=== PATIENT | female | born 1940 | race Caucasian/White ===

== ENCOUNTER 2018-10-20 15:01 | Emergency (ER) | payer OTHER ==
[~2018-10-20] VITALS: Ht 157.5 cm; Wt 106.6 kg
[2018-10-20] MEDS ORDERED: ASPIR 8181 MG PO (15:36)
[2018-10-20] MEDS ORDERED: CLARITIN10 MG PO (15:37)
[2018-10-20] MEDS ORDERED: ZANAFLEX4 MG PO (15:46)
[2018-10-20] MEDS ORDERED: CELEBREX 200 M200 M1 PO (15:46)
[2018-10-20] MEDS ORDERED: DILAUDID 2 MG TA2 MG PO (15:47)
[2018-10-20] MEDS ORDERED: NEURONTIN 300300 M1 PO (15:47)
[2018-10-20] MEDS ORDERED: FLOMAX0.4 MG PO (15:47)
[2018-10-20] MEDS ORDERED: MOVANTIK25 MG PO (15:48)
[2018-10-20] MEDS ORDERED: TROSPIUM CHLORI60 MG PO (15:48)
[2018-10-20] MEDS ORDERED: SYNTHROID100 MC1 PO (15:48)
[2018-10-20] MEDS ORDERED: ESTRACE0.5 MG PO (15:49)
[2018-10-20] MEDS ORDERED: FENOFIBRATE160 MG PO (15:50)
[2018-10-20] MEDS ORDERED: AMITRIPTYLINE H25 M2 PO (15:50)
[2018-10-20] MEDS ORDERED: CYMBALTA60 MG PO (15:51)
[2018-10-20] MEDS ORDERED: VITAMIN B-12500 MCG PO (15:58)
[2018-10-20] MEDS ORDERED: TUMS PO (15:59)
[2018-10-20] MEDS ORDERED: VITAMIN D1000 UNI1 PO (15:59)
[2018-10-20] MEDS ORDERED: B COMPLEX # 11 EACH PO (15:59)
[2018-10-20] MEDS ORDERED: PROBIOTIC1 EAC1 PO (15:59)
[2018-10-20 16:13] VITALS: BP 120/42
== END 2018-10-20 16:28 | disposition home or self-care (01) ==
LOC: ER 15:01
DX: G89.29 Other chronic pain (principal); M54.5 Low back pain; Z88.0 Allergy status to penicillin

== ENCOUNTER 2018-12-05 14:55 | Emergency (ER) | payer OTHER ==
[~2018-12-05] VITALS: Ht 157.5 cm; Wt 108.4 kg
[~2018-12-05 14:55] MED LIST: AMITRIPTYLINE H25 M2 PO; ASPIR 8181 MG PO; B COMPLEX # 11 EACH PO; CELEBREX 200 M200 M1 PO; CLARITIN10 MG PO; CYMBALTA60 MG PO; DILAUDID 2 MG TA2 MG PO; ESTRACE0.5 MG PO; FENOFIBRATE160 MG PO; FLOMAX0.4 MG PO; MOVANTIK25 MG PO; NEURONTIN 300300 M1 PO; PROBIOTIC1 EAC1 PO; SYNTHROID100 MC1 PO; TROSPIUM CHLORI60 MG PO; TUMS PO; VITAMIN B-12500 MCG PO; VITAMIN D1000 UNI1 PO; ZANAFLEX4 MG PO
[2018-12-05 16:38] VITALS: BP 117/56
== END 2018-12-05 16:35 | disposition home or self-care (01) ==
LOC: ER 14:55
DX: G89.29 Other chronic pain (principal); M54.5 Low back pain; F41.9 Anxiety disorder, unspecified; F32.9 Major depressive disorder, single episode, unspecified; Z90.49 Acquired absence of other specified parts of digestive tract; Z90.710 Acquired absence of both cervix and uterus; Z88.0 Allergy status to penicillin

== ENCOUNTER 2019-02-06 11:36 | Emergency (ER) | payer OTHER ==
[~2019-02-06] VITALS: Ht 157.5 cm; Wt 105.2 kg
[2019-02-06 14:38] VITALS: BP 138/86
== END 2019-02-06 14:39 | disposition home or self-care (01) ==
LOC: ER 11:36
DX: G89.29 Other chronic pain (principal); M54.5 Low back pain; Z90.49 Acquired absence of other specified parts of digestive tract; Z90.710 Acquired absence of both cervix and uterus; Z88.0 Allergy status to penicillin; Z79.899 Other long term (current) drug therapy

== ENCOUNTER 2019-02-08 12:56 | Emergency (ER) | payer OTHER ==
[~2019-02-08] VITALS: Ht 157.5 cm; Wt 105.2 kg
[2019-02-08 13:29] LABS: URINE BILIRUBIN NEGATIVE (Negative); URINE BLOOD 3+ (Negative); URINE CLARITY CLEAR; URINE COLOR YELLOW; URINE GLUCOSE-RANDOM* 3+ (Negative); URINE KETONES TRACE (Negative); URINE LEUKOCYTES-REFLEX 1+ (Negative); URINE NITRITE-REFLEX NEGATIVE (Negative); URINE PROTEIN (DIPSTICK) TRACE (Negative); URINE UROBILINOGEN 0.2 E.U./dl (0.2-1.0)
[2019-02-08 13:39] LABS: AMORPHOUS URATES Many /LPF (None Seen); BACTERIA-REFLEX 1-9 Few /HPF (None Seen); CASTS None Seen /LPF (None Seen); SQUAMOUS 0-3 Few /LPF (0-3); URINE WBC-REFLEX >25 Many /HPF (0-5)
[2019-02-08] MEDS ORDERED: MACROBID 100 M100 M1 PO (14:28)
[2019-02-08 15:21] VITALS: BP 119/57
== END 2019-02-08 14:40 | disposition home or self-care (01) ==
LOC: ER 12:56
PROVIDERS: Emergency Medicine
DX: G89.29 Other chronic pain (principal); M54.5 Low back pain; Z90.49 Acquired absence of other specified parts of digestive tract; Z90.710 Acquired absence of both cervix and uterus; Z79.899 Other long term (current) drug therapy; Z88.0 Allergy status to penicillin

== ENCOUNTER 2019-03-30 11:31 | Inpatient (IN) | payer OTHER ==
[~2019-03-30] VITALS: Ht 157.5 cm; Wt 101.4 kg
--- NOTE | ~2019-03-30 | HC ---
[facility] [place] [address] CONSULTATION Name: IRENE JON Room #: 427-P [facility] IN M.R.#: [id number] Admission: 03/30/19 ������������������ Attend Phys: Danny Roa MD Discharge: ������������������ Date of : 42 Report #: [id number] THIS REPORT FOR: //name// CC: Danny Kilgore DATE OF SERVICE: 03/31/2019 HISTORY OF PRESENT ILLNESS: The patient is a 78-year-old white female with a history of recurrent UTIs, along with chronic back pain and opiate usage and prior spinal stimulator. She was admitted with worsening back pain and right flank pain. This was thought to be likely urinary related with CT scan showing marked bladder wall thickening, likely due to chronic cystitis. She has been on IV antibiotics. She was diagnosed with right lower extremity radiculopathy as well as an encephalopathy thought to be metabolic, which appears to be resolved. Her pain complains are overall better and she notes she is functioning much better and is hoping to go home soon. We are seeing her in rehabilitation medicine consultation. PAST MEDICAL HISTORY: As noted above. Prior history also includes the chronic back pain, neural stimulator in her back, pancreatitis, anxiety, and depression. MEDICATIONS: Please see the full medication listing. HABITS: No history of tobacco or alcohol abuse. SOCIAL HISTORY: Lives in [facility] in [facility]. She uses a front-wheeled walker. No stairs. REVIEW OF SYSTEMS: No complaints of chest pain, shortness of breath, or abdominal discomfort. PHYSICAL EXAMINATION: GENERAL: A pleasant, obese 78-year-old white female, in no obvious distress. VITAL SIGNS: Temperature 97.6, pulse 94, respirations 16, blood pressure 113/70. She is alert and pleasant. HEENT: Appeared to be benign. NEUROLOGIC: Cranial nerves grossly intact. Facies are symmetric. EXTREMITIES: Functional range of motion of both upper extremities. Lower extremities: She does have some evidence of chronic lymphedema. She moves both legs with strength probably at least a grade 4/5. Sit to stand, standby assistance and she ambulated 250 feet with a front-wheeled walker with standby assistance. ASSESSMENT: A 78-year-old white female with the following problem list: 1. Recurrent urinary tract infection. [address] [address] CONSULTATION Name: IRENE JON Room #: 427-P [facility] IN M.R.#: [id number] Admission: 03/30/19 ������������������ Attend Phys: Danny Roa MD Discharge: ������������������ Date of : 42 Report #: [id number] 2. Zssmz-of-yqubmez right flank back pain with radiculopathy to the right lower extremity. 3. Uncontrolled diabetes mellitus. 4. Lymphedema. 5. Polypharmacy. 6. Anxiety and depression. PLAN: Functionally, she is doing very well with her ambulation with a front-wheeled walker. Physical therapy has actually discharged her from therapies and I would anticipate that should be able to return directly home likely with some home healthcare as she further medically stabilizes. ��������������������������������������������� ���������������������������������������� By: ��������������������������������������������� 1415 1816 Murray Martinez MD /PMT
[~2019-03-30 11:31] MED LIST changes: +MACROBID 100 M100 M1 PO
[2019-03-30 11:38] VITALS: BP 112/65
[2019-03-30 12:18] LABS: URINE BILIRUBIN NEGATIVE (Negative); URINE BLOOD 3+ (Negative); URINE CLARITY TURBID; URINE GLUCOSE-RANDOM* 3+ (Negative); URINE KETONES 1+ (Negative); URINE LEUKOCYTES 2+ (Negative); URINE NITRITE POSITIVE (Negative); URINE PROTEIN (DIPSTICK) 3+ (Negative)
[2019-03-30 12:19] LABS: URINE COLOR DARK RED
[2019-03-30 12:29] LABS: BACTERIA >30 Many /HPF (None Seen); CASTS None Seen /LPF (None Seen); CRYSTALS None Seen /LPF (None Seen); URINE RBC >20 Many /HPF (0-2); URINE WBC >25 Many /HPF (0-5)
[2019-03-30 12:30] LABS: SQUAMOUS 4-10 Moderate /LPF (0-3)
[2019-03-30 12:31] LABS: YEAST Present (None Seen)
[2019-03-30 12:45] LABS: HEMATOCRIT 41.2 % (37.0-47.0); HEMOGLOBIN 13.8 gm/dL (12.0-15.0); MCH 30.9 pg (26.0-34.0); MCHC 33.4 g/dL (28.0-37.0); MCV 92.3 fL (80.0-100.0); PLATELET COUNT 362 thou/uL (150-400); RBC 4.47 mil/uL (4.20-5.00); RDW 12.7 % (10.5-14.5); WBC 10.1 thou/uL (4.0-11.0)
[2019-03-30 12:49] LABS: CREATININE 0.8 mg/dL (0.6-1.0); POTASSIUM 4.3 mmol/L (3.5-5.1)
[2019-03-30 12:55] LABS: ALBUMIN 2.8 g/dL (3.4-5.0); TOTAL BILIRUBIN 0.7 mg/dL (<0.1-1.0); TOTAL PROTEIN 7.3 g/dL (6.4-8.2)
[2019-03-30 13:21] LABS: ABSOLUTE NEUTROPHILS 8.1 thou/uL (1.4-8.2)
[2019-03-30 13:22] LABS: ANISOCYTOSIS SLIGHT
[2019-03-30 17:35] VITALS: BP 117/69
[2019-03-30 22:04] VITALS: BP 120/83
[2019-03-30 23:07] VITALS: BP 153/103
--- NOTE | 2019-03-31 03:48 | NUR ---
PT RESTING, WOKE UP CRYING, MEDICATED WITH DILAUDID 1.5 MG IV ORDERED, PT ABLE TO TURN/REPOSITION SELF, PERIAREA RED, MOISTURE BARRIER APPLIED, CONTINUE WITH VAGINAL BLEEDING, DENIES DIZZINESS, USES BEDPAN AND VOIDED, ENC. TO DRINK LOTS OF WATER DUE TO UTI,. IVF INFUSING, ON ROOM AIR, MONITORED.
[2019-03-31 03:49] VITALS: BP 113/70
[2019-03-31 04:06] LABS: GLYCOHEMOGLOBIN (HGB A1C) 14.8 % (4.8-5.6)
[2019-03-31 06:28] LABS: CALCIUM 9.1 mg/dL (8.5-10.1); CREATININE 0.7 mg/dL (0.6-1.0); MAGNESIUM 1.6 mg/dL (1.8-2.4); POTASSIUM 3.5 mmol/L (3.5-5.1)
--- NOTE | 2019-03-31 10:58 | NUR ---
Assess due to high BMI 40.9=extreme class III obesity. New dx diabetes, admit with recurrent UTI. Good appetite. Provided diet education for carb control meal plan-see RD education documentation. A1C 14.8. Low nutrition risk
--- NOTE | 2019-03-31 11:59 | NUR ---
PT A&OX4, IV INFUSING NS@ 100/HR W/O COMPS IN R AC. TRANSFERS WITH ASSIST X1. VAGINAL BLEEDING NOTED. C/O BACK PAIN AT 02/08, WILL TREAT WITH PO PAIN MED ORDERED. PT NOW SITTING IN CHAIR, ALARM FLASH WELDER LIGHT W/I REACH. WILL CONT POC.
--- NOTE | 2019-03-31 14:56 | NUR ---
PATIENT SEEN BY DR. TRUJILLO FOR REHAB CONSULT. PATIENT IS NOT AN ACUTE REHAB CANDIDATE DUE TO BEING TOO HIGH FUNCTIONING. AMUSEMENT EQUIPMENT OPERATOR INFORMED. DEHYDRATOR TENDER SPOKE WITH PATIENT TO LET HER KNOW THAT SHE WAS NOT A REHAB CANDIDATE. THANK YOU FOR THIS REFERRAL.
--- NOTE | 2019-03-31 16:44 | NUR ---
PT ADMITTED RELATED TO BACK PAIN, UTI. CM REVIEWED CHART AND SPOKE WITH CARE TEAM. CM MET WITH PT AT BEDSIDE THIS DAY. PT IS A&O X4. CM ROLE INTRODUCED. PT INDICATED SHE LIVES IN AN INDEPENDENT MEZA AT [facility] WITH HER SPOUSE. SHE INDICATED NO STEPS TO ENTER AND NO STEPS INSIDE. 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 PT INDICATED NO HH HX. SHE STATED THAT SHE PLANS TO DC HOME ONCE MEDICALLY STABLE. 5N ASSESSED AND INDICATED THAT PT IS TOO HIGH LEVEL FOR ADMISSION THERE. CM TO FOLLOW INDICATED WITH DC PLANNING.
[2019-03-31 21:19] VITALS: BP 122/60
--- NOTE | 2019-04-01 03:11 | NUR ---
ASSUMED CARE OF PT @1900. WELDER 2ND SHIFT&OX4 AT THIS SHIFT WITH C/O BACK PAIN, PAIN MEDS GIVEN FOR MANGEMENT. VAGINAL BLEEDING NOTED. PT UP WITH ASSIT X1 TO THE BATHROOM. IV FLUID INFUSING AND POC DONE. WILL CONTINUE TO MONITOR TILL EOS.
[2019-04-01 06:25] LABS: HEMATOCRIT 35.6 % (37.0-47.0); MCH 31.1 pg (26.0-34.0); MCHC 33.8 g/dL (28.0-37.0); MCV 92.1 fL (80.0-100.0); RBC 3.86 mil/uL (4.20-5.00); RDW 12.8 % (10.5-14.5); WBC 7.4 thou/uL (4.0-11.0)
[2019-04-01 06:35] LABS: CALCIUM 8.5 mg/dL (8.5-10.1); CREATININE 0.6 mg/dL (0.6-1.0); POTASSIUM 3.7 mmol/L (3.5-5.1)
[2019-04-01 08:00] VITALS: BP 120/68
[2019-04-01 16:50] VITALS: BP 168/63
[2019-04-01 20:00] VITALS: BP 118/49
[2019-04-02 04:20] VITALS: BP 126/76
--- NOTE | 2019-04-02 04:39 | NUR ---
ASSUMED PT CARE 1899. PT ALERT AND ORIENTED. REASSESSMENT COMPLETE. VSS. IV DRESSING C/D/I. UP TO BSC. REPORTS PAIN, SEE EMAR. REPORTS MILD NAUSEA, BETETR WITH CRACKERS. DENIES VOMITING. CALL LIGHT AND PERSONAL BELONINGS WITHIN REACH. WILL OCNTINUE POC UNTIL EOS.
[2019-04-02 05:15] LABS: HEMATOCRIT 34.6 % (37.0-47.0); HEMOGLOBIN 11.5 gm/dL (12.0-15.0); MCH 30.7 pg (26.0-34.0); MCHC 33.2 g/dL (28.0-37.0); MCV 92.7 fL (80.0-100.0); RBC 3.73 mil/uL (4.20-5.00); WBC 7.6 thou/uL (4.0-11.0)
[2019-04-02 05:28] LABS: CALCIUM 8.5 mg/dL (8.5-10.1); CREATININE 0.5 mg/dL (0.6-1.0); POTASSIUM 4.1 mmol/L (3.5-5.1)
[2019-04-02 07:44] VITALS: BP 142/78
--- NOTE | 2019-04-02 11:27 | NUR ---
Assumed care of pt at 0700. Pt alert and oriented x4. Pain controlled with prn pain meds. IVF and antibiotics infusing. Family at bedside. Call light within reach. Fall precautions in place. Will continue to monitor.
[2019-04-02] MEDS ORDERED: LEVEMIR SUBQ (12:09)
[2019-04-02] MEDS ORDERED: METFORMIN HCL500 MG PO (12:10)
[2019-04-02] MEDS ORDERED: GLYBURIDE 2.52.5 MG PO (12:11)
[2019-04-02] MEDS ORDERED: KEFLEX500 M1 PO (12:12)
[2019-04-02 13:34] VITALS: BP 142/78
--- NOTE | 2019-04-02 14:42 | NUR ---
FAXED REFERRAL TO [facility] SPOKE WITH JOJO IN INTAKE AND SHE CAN ACCEPT PT DCP TO FAX DC ORDERS/SUMMARY AND THEY WILL START VISITS TOMORROW 04/03 AND WILL NOTIFY PT TIME OF VISITS.
[2019-04-02 14:53] VITALS: BP 142/78
--- NOTE | 2019-04-02 16:51 | NUR ---
CM MET WITH PT AND SPOUSE AT BEDSIDE THIS DAY. CARE TEAM INDICATED PT IS MEDICALLY STABLE TO DC HOME WITH HH. PT ASKED THAT REFERRAL BE SENT TO [facility]. REFERRAL SENT. THEY ARE ABLE TO ACCEPT PT AND WILL DO A SOC TOMORROW. NO OTHER CM INTERVETNION INDICATED. CASE CLOSED.
== END 2019-04-02 15:07 | disposition home health service (06) | DRG 689 ==
LOC: ER 11:31 → EROBS 16:13 → 4E 16:13 → EROBS 16:23 → 4E 23:08 → ENTRNSPT 04-02 14:51 → EDTRNSPTSTS 04-02 14:53 → 4E 04-02 15:07
PROVIDERS: Emergency Medicine; Hospitalist; Nurse Practitioner; ADMIT Internal Medicine
DX: N39.0 Urinary tract infection, site not specified (principal); G93.41 Metabolic encephalopathy; M54.10 Radiculopathy, site unspecified; M54.9 Dorsalgia, unspecified; G89.29 Other chronic pain; F41.9 Anxiety disorder, unspecified; F32.9 Major depressive disorder, single episode, unspecified; E03.9 Hypothyroidism, unspecified; G47.33 Obstructive sleep apnea (adult) (pediatric); E11.65 Type 2 diabetes mellitus with hyperglycemia; K59.00 Constipation, unspecified; I89.0 Lymphedema, not elsewhere classified; E83.42 Hypomagnesemia; R29.6 Repeated falls; N32.81 Overactive bladder; R31.9 Hematuria, unspecified; Z90.710 Acquired absence of both cervix and uterus; Z90.49 Acquired absence of other specified parts of digestive tract; Z88.0 Allergy status to penicillin; Z79.891 Long term (current) use of opiate analgesic; Z79.899 Other long term (current) drug therapy; Z79.1 Long term (current) use of non-steroidal anti-inflammatories (NSAID)
CPT/HCPCS: 10084

== ENCOUNTER 2019-04-13 11:49 | Emergency (ER) | payer OTHER ==
[~2019-04-13] VITALS: Ht 157.5 cm; Wt 102.1 kg
[~2019-04-13 11:49] MED LIST changes: +GLYBURIDE 2.52.5 MG PO; +KEFLEX500 M1 PO; +LEVEMIR SUBQ; +METFORMIN HCL500 MG PO
[2019-04-13 12:21] LABS: URINE BILIRUBIN NEGATIVE (Negative); URINE BLOOD 2+ (Negative); URINE COLOR YELLOW; URINE GLUCOSE-RANDOM* NEGATIVE (Negative); URINE KETONES NEGATIVE (Negative); URINE LEUKOCYTES-REFLEX 3+ (Negative); URINE NITRITE-REFLEX NEGATIVE (Negative); URINE PROTEIN (DIPSTICK) NEGATIVE (Negative); URINE SPECIFIC GRAVITY 1.015 (1.005-1.035); URINE UROBILINOGEN 0.2 E.U./dl (0.2-1.0)
[2019-04-13 12:22] LABS: URINE CLARITY HAZY
[2019-04-13 12:29] LABS: CASTS None Seen /LPF (None Seen); MUCUS 4-6 Moderate strn/LPF (None Seen); SQUAMOUS >10 Many /LPF (0-3)
[2019-04-13 12:33] LABS: BACTERIA-REFLEX >30 Many /HPF (None Seen); CRYSTALS None Seen /LPF (None Seen); URINE RBC 0-2 Rare /HPF (0-2); URINE WBC-REFLEX >25 Many /HPF (0-5); WBC CLUMPS Moderate (None Seen)
[2019-04-13] MEDS ORDERED: OXYBUTYNIN 5 MG5 M2 PO (12:56)
[2019-04-13] MEDS ORDERED: COLACE100 MG PO (12:56)
[2019-04-13 12:57] LABS: ABSOLUTE NEUTROPHILS 5.4 thou/uL (1.4-8.2); BASOPHILS 1.4 % (0.0-2.0); EOSINOPHILS 1.9 % (0.0-3.0); HEMATOCRIT 37.4 % (37.0-47.0); HEMOGLOBIN 12.4 gm/dL (12.0-15.0); LYMPHOCYTES 18.4 % (24.0-44.0); MCH 30.8 pg (26.0-34.0); MCHC 33.2 g/dL (28.0-37.0); MCV 92.8 fL (80.0-100.0); MONOCYTES 6.1 % (1.0-8.0); PLATELET COUNT 367 thou/uL (150-400); POLYS 72.2 % (36.0-66.0); RBC 4.03 mil/uL (4.20-5.00); RDW 13.4 % (10.5-14.5); WBC 7.5 thou/uL (4.0-11.0)
[2019-04-13] MEDS ORDERED: FISH OIL 1,001000 M2 PO (12:58)
[2019-04-13 13:00] LABS: CALCIUM 9.9 mg/dL (8.5-10.1); CREATININE 0.7 mg/dL (0.6-1.0)
[2019-04-13 13:06] LABS: ALBUMIN 3.1 g/dL (3.4-5.0); DIRECT BILIRUBIN 0.2 mg/dL (<0.1-0.3); TOTAL BILIRUBIN 0.5 mg/dL (<0.1-1.0); TOTAL PROTEIN 7.2 g/dL (6.4-8.2)
[2019-04-13] MEDS ORDERED: LEVEMIR100 UNIT/1 SUBQ (13:10)
[2019-04-13] MEDS ORDERED: MACROBID 100 M100 M2 PO (14:31)
[2019-04-13 14:52] VITALS: BP 123/74
== END 2019-04-13 14:53 | disposition home or self-care (01) ==
LOC: ER 11:49
PROVIDERS: Nurse Practitioner
DX: N30.01 Acute cystitis with hematuria (principal); M54.9 Dorsalgia, unspecified; G89.29 Other chronic pain; F41.9 Anxiety disorder, unspecified; F32.9 Major depressive disorder, single episode, unspecified; E11.9 Type 2 diabetes mellitus without complications; Z90.710 Acquired absence of both cervix and uterus; Z90.49 Acquired absence of other specified parts of digestive tract; Z88.0 Allergy status to penicillin

== ENCOUNTER 2019-04-29 14:15 | Inpatient (IN) | payer OTHER ==
[~2019-04-29] VITALS: Ht 157.5 cm; Wt 98.9 kg
[~2019-04-29 14:15] MED LIST changes: +COLACE100 MG PO; +FISH OIL 1,001000 M2 PO; +LEVEMIR100 UNIT/1 SUBQ; +MACROBID 100 M100 M2 PO; +OXYBUTYNIN 5 MG5 M2 PO
[2019-04-29 14:16] VITALS: BP 104/43
[2019-04-29 14:43] LABS: URINE BLOOD 3+ (Negative); URINE CLARITY CLEAR; URINE COLOR BROWN; URINE GLUCOSE-RANDOM* TRACE (Negative); URINE KETONES TRACE (Negative); URINE LEUKOCYTES-REFLEX 2+ (Negative); URINE NITRITE-REFLEX POSITIVE (Negative); URINE PROTEIN (DIPSTICK) 3+ (Negative); URINE SPECIFIC GRAVITY 1.025 (1.005-1.035)
[2019-04-29 14:44] LABS: ICTOTEST (BILI CONFIRMATORY) Negative (Negative); URINE BILIRUBIN NEGATIVE (Negative)
[2019-04-29 14:51] LABS: BACTERIA-REFLEX >30 Many /HPF (None Seen); CASTS None Seen /LPF (None Seen); CRYSTALS None Seen /LPF (None Seen); SQUAMOUS 0-3 Few /LPF (0-3); URINE RBC >20 Many /HPF (0-2); URINE WBC-REFLEX >25 Many /HPF (0-5); WBC CLUMPS Packed (None Seen)
[2019-04-29 14:51] LABS: ABSOLUTE NEUTROPHILS 6.6 thou/uL (1.4-8.2); BASOPHILS 1.3 % (0.0-2.0); HEMOGLOBIN 12.2 gm/dL (12.0-15.0); LYMPHOCYTES 20.4 % (24.0-44.0); MCH 31.4 pg (26.0-34.0); MCHC 33.8 g/dL (28.0-37.0); MONOCYTES 6.4 % (1.0-8.0); PLATELET COUNT 355 thou/uL (150-400); POLYS 68.9 % (36.0-66.0); RBC 3.87 mil/uL (4.20-5.00); RDW 13.3 % (10.5-14.5); WBC 9.6 thou/uL (4.0-11.0)
[2019-04-29 14:57] LABS: CALCIUM 10.2 mg/dL (8.5-10.1); CREATININE 0.9 mg/dL (0.6-1.0)
[2019-04-29 15:05] LABS: ALBUMIN 3.4 g/dL (3.4-5.0); TOTAL BILIRUBIN 0.3 mg/dL (<0.1-1.0); TOTAL PROTEIN 7.2 g/dL (6.4-8.2)
[2019-04-29 16:59] VITALS: BP 115/65
[2019-04-29 17:21] VITALS: BP 123/71; BP 127/76
--- NOTE | 2019-04-29 18:55 | NUR ---
ASSUMED CARE OF PT APPROX 174. PT A&OX4, VSS, PAIN AT 7 IN BACK. FLUIDS RUNNING ORDERED. AT BEDSIDE. ADMISSION ASSESSMENT COMPLETE. WILL CONTINUE TO MONITOR.
[2019-04-29 20:19] VITALS: BP 115/67
--- NOTE | 2019-04-30 04:24 | NUR ---
ASSUMED CARE OF PT AR 1900HRS. PT AOX4 AND CALLS APPROPIATELY. FALL PRECAUTION IN PLACE. IV ABX STARTED. PT AMBULATES WITH SB ASSIST AND WALKER TO THE BATHROOM. PT REPORTED SOME PAIN AND WAS TREATED WITH PRN PAIN MEDS. PT WAS ABLE TO SLEEP PART OF THE SHIFT. NO S/S OF ACUTE DISTRESS. WI;; CONTINUE TO MONITOR.
[2019-04-30 08:42] VITALS: BP 115/74
--- NOTE | 2019-04-30 12:27 | NUR ---
met with patient and spouse at bedside. 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 SHe is rec [facility] plane captain. She just found out she is diabetic and they have a varnish blender to see her for HH and education. Plan dc home with [facility] care. IF PATIENT TO DC OVERWEEKEND PLEASE CALL [facility] [phone] FAX ORERS TO [phone]
--- NOTE | 2019-04-30 14:00 | NUR ---
DISCHARGE PLANNING. ANTICIPATED DISCHARGE OVER THE WEEKEND. PATIENT TO DISCHARGE TO HOME WITH [facility]. PATIENT HAS USED [facility] IN THE PAST AND WOULD LIKE TO USE THEM AGAIN FOR HH SERVICES. REFERRAL FAXED TO [facility]. CALL PLACED TO [facility] TO NOTIFY, VERIFIED REFERRAL RECEIVED. [facility] TO FACILITATE PATIENTS HH NEEDS ONCE DISCHARGE/HOME HEALTH ORDERS RECEIVED. PLEASE FAX PHYSICIAN COMPLETED ORDERS TO: [facility] FAX [phone] [facility] CONTACT NUMBER [phone]
[2019-04-30 15:11] VITALS: BP 114/48
[2019-04-30 19:24] VITALS: BP 120/63
--- NOTE | 2019-04-30 20:30 | NUR ---
Pt. blood sugar was 50 and juice was given. She is asymtomatic. Upon recheck blood sugar up to 84. She did c/o back pain and pain medication was given (see emar).
--- NOTE | 2019-04-30 20:58 | NUR ---
PT A&OX4, VSS, PAIN IN BACK. PAIN MANAGED WITH MEDICATION. AT BEDSIDE. MEDICATION GIVEN ORDERED, NO SIGNS OF DISTRESS, WILL CONTINUE TO MONITOR.
--- NOTE | 2019-05-01 04:51 | NUR ---
Pt. has had pain meds for c/o back pain with no relief to some relief noted (see emar). She has been assisted to the bathroom with stand by assist.
[2019-05-01 08:00] VITALS: BP 115/66
[2019-05-01 15:00] VITALS: BP 119/54
--- NOTE | 2019-05-01 19:22 | NUR ---
PT A&OX4, VSS, PAIN IN BACK. PATIENTS PAIN STARTS TO INCREASE AN HOUR BEFORE MEDICATION IS DUE, PATIENT IS ABLE TO REST UNTIL NEXT PAIN MEDICATION DOSE. NO SIGNS OF DISTRESS, AT BEDSIDE. WILL CONTINUE TO MONITOR.
[2019-05-01 19:55] VITALS: BP 127/60
--- NOTE | 2019-05-01 20:44 | NUR ---
Pt. sitting up in recliner chair with chair alarm on. Blood sugar 67 and pt. asymtomatic for low blood sugar. Snack was given and upon recheck it was up to 141.
--- NOTE | 2019-05-02 04:09 | NUR ---
Pt. rested quietly at intervals during the night when checked on during frequent rounds. She c/o nausea and iv zofran given (see emar) with relief voiced. Pt. also c/o back pain and po pain med given (see emar) with some relief noted. Bed alarm is on.
[2019-05-02 08:00] VITALS: BP 122/64
[2019-05-02 15:00] VITALS: BP 103/58
[2019-05-02 16:16] VITALS: BP 103/58
[2019-05-02 16:18] VITALS: BP 103/58
[2019-05-02 19:39] VITALS: BP 120/56
--- NOTE | 2019-05-02 20:17 | NUR ---
PT A&OX4,VSS,PAIN IN BACK. PAIN MEDICATON ADJUSTED. ANTIBIOTICS RAN ORDERED. AT BEDSIDE. ASSISTED WITH ADLS. NO SIGNS OF DISTRESS. WILL CONTINUE TO MONITOR.
[2019-05-03 03:00] VITALS: BP 162/66
--- NOTE | 2019-05-03 07:18 | NUR ---
PROGRESS PT A/O X4 UP WITH 1 SBA AND WALKER GAIT STEADY, TAKING 2 MG DILAUDID PO FOR PAIN AND 2 MG MORPHINE IVP. ACCUCHECKS AND SSI CONTINUE VOIDING QS. TOLERATING DIET, IVF'S CONTINUE CONTINUE POC.
[2019-05-03] MEDS ORDERED: ZYVOX600 MG PO (10:44)
[2019-05-03 11:13] VITALS: BP 103/58
--- NOTE | 2019-05-03 14:00 | NUR ---
Received awake on bed. Due medications given as prescribed, able to swallow tablets w/o difficulty. A+Ox4. Complained of pain, due PRN pain medications given as prescribed. On blood sugar monitoring- taken and recorded, with insulin sliding scale. On room air. With NS at 80cc/hr, infusing well at R AC. 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 Assisted in ADLs. Pt's at the bedside. Pt seen by Dr Rodriguez, for discharge. Falls risk- falls bundle in place. Pt able to go to the bathroom using walker and gait belt. Discharge instructions, follow up schedule- Dr Frances's contact number given to pt as per physician's order, prescription given. Iv discontinued. Pt taken down via wheelchair with her personal belongings, went home with .
--- NOTE | 2019-05-04 12:07 | NUR ---
DP faxed patient's discharge paperwork to [facility], dp received call that no one faxed dc papers to them when patient dc yesterday (holiday).
== END 2019-05-03 12:25 | disposition home or self-care (01) | DRG 690 ==
LOC: ER 14:15 → 4W 16:11 → EROBS 16:11 → 4W 17:32
PROVIDERS: Emergency Medicine; ADMIT Hospitalist
DX: N30.91 Cystitis, unspecified with hematuria (principal); F41.9 Anxiety disorder, unspecified; F32.9 Major depressive disorder, single episode, unspecified; G89.29 Other chronic pain; M54.9 Dorsalgia, unspecified; B95.8 Unspecified staphylococcus as the cause of diseases classified elsewhere; B96.89 Other specified bacterial agents as the cause of diseases classified elsewhere; N32.81 Overactive bladder; E11.42 Type 2 diabetes mellitus with diabetic polyneuropathy; Z79.4 Long term (current) use of insulin; Z90.710 Acquired absence of both cervix and uterus; Z90.49 Acquired absence of other specified parts of digestive tract; Z79.899 Other long term (current) drug therapy; Z88.0 Allergy status to penicillin
CPT/HCPCS: 10040

== ENCOUNTER 2019-06-04 15:08 | Emergency (ER) | payer OTHER ==
[~2019-06-04] VITALS: Ht 157.5 cm; Wt 98.9 kg
[~2019-06-04 15:08] MED LIST changes: +ZYVOX600 MG PO
[2019-06-04] MEDS ORDERED: NORCO 5-325 TA1 EAC1 PO (17:19)
[2019-06-04 17:24] VITALS: BP 107/64
== END 2019-06-04 17:28 | disposition home or self-care (01) ==
LOC: ER 15:08
DX: M54.5 Low back pain (principal); G89.29 Other chronic pain; E11.9 Type 2 diabetes mellitus without complications; F41.9 Anxiety disorder, unspecified; F32.9 Major depressive disorder, single episode, unspecified; Z90.49 Acquired absence of other specified parts of digestive tract; Z90.710 Acquired absence of both cervix and uterus; Z88.0 Allergy status to penicillin; Z88.1 Allergy status to other antibiotic agents

== ENCOUNTER 2019-12-01 16:57 | Emergency (ER) | payer OTHER ==
[~2019-12-01] VITALS: Ht 162.6 cm; Wt 103.4 kg
[~2019-12-01 16:57] MED LIST changes: +NORCO 5-325 TA1 EAC1 PO
[2019-12-01 17:00] VITALS: BP 129/71
== END 2019-12-01 18:01 | disposition home or self-care (01) ==
LOC: ER 16:57
DX: M54.5 Low back pain (principal); G89.29 Other chronic pain; E11.9 Type 2 diabetes mellitus without complications; F32.9 Major depressive disorder, single episode, unspecified; F41.9 Anxiety disorder, unspecified; Z90.710 Acquired absence of both cervix and uterus; Z90.49 Acquired absence of other specified parts of digestive tract; Z79.4 Long term (current) use of insulin; Z88.0 Allergy status to penicillin; Z88.8 Allergy status to other drugs, medicaments and biological substances

== ENCOUNTER 2020-07-09 20:08 | Inpatient (IN) | payer OTHER ==
[~2020-07-09] VITALS: Ht 162.6 cm; Wt 93.0 kg
--- NOTE | ~2020-07-09 | EMS ---
[facility] [address] [place] [address] EMS Patient Care Report Name: IRENE JON Room #: REG NEW [place]#: [id number] Admission: 07/09/20 Attend Phys: Discharge: Date of : 42 Report #: [id number] THIS REPORT FOR: //name// Report Transmitted: 07/09/2020 20:28 EMS Care Summary [facility] MED-ACT Incident [id number] @ 07/09/2020 19:21 Incident Location [address] [place] [address] Patient IRENE JON Female, 79 Years 1940 Patient Address [address] [place] [address] Patient History Diabetes,Hypothyroidism,Back Pain (Chronic), Patient Allergies Penicillin allergy, Patient Medications Levothyroxine, Duloxetine, Fenofibrate, Estradiol, Oxybutynin, Other, Gabapentin, Celecoxib, Hydromorphone, Loratadine, Tizanidine, Tamsulosin, Amitriptyline, Levemir, Chief Complaint weakness, abdominal pain, nausea Disposition Transported No Lights/[place] Reason Assist Invalid Transported To [facility] Narrative Upon EMS arrival pt. was found lying in bed in the care of OFD. It was reported that pt. has not been feeling well for the past 3 days. She [facility] [address] [place] [address] EMS Patient Care Report Name: IRENE JON Room #: REG NEW [place]#: [id number] Admission: 07/09/20 Attend Phys: Discharge: Date of : 42 Report #: [id number] reports abdominal pain in her lower abdomen and more specifically on the right lower abdomen. She says that it feels like a dull ache and is intermittent. The ache was not increased with palpation and the pain/ache did not radiate. The pain did not increase with movement or positioning. She also states that she has been feeling weak and has a fever that started today. She denied recent cough or known exposure to COVID-19. She lives at home with her and reports that they have been isolating in their home. EMS donned N100 mask once it was reported pt. had a fever. Pt. reports that although she has been nauseated the past 3 days she has not vomited once. She told EMS that she did not take her insulin today because she did not feel like eating, and thus no insulin if no food. She fell this morning in the bathroom and was not injured from the fall, though the fire dept. did come to help her up from the floor. This evening she was trying to get out of bed and lost her footing because of her weakness and fell in the bedroom. Again no injury from her fall. She denied any head or neck pain. She said that her back has chronic pain but reports no new back pain. Pt. said that she feels dizzy when she lifts her head up or tries to stand up, and this also increases her nausea. Pt. was moved from bed to cot with lateral movement to minimize raising her head and increasing her nausea. Pt. was assessed for IV access, but access was not attempted. Pt. transported to [facility] without incident. Care released to ER staff room 5. Initial Vitals @19:49P: 94,SpO2: 97, @19:46P: 93,HI Suspected: false @PTAP: 105,R: 18,BP: 125/62,Pain: 0/10,GCS: 15,Temp: 100.5F,Glucose: 262,SpO2: 95,Revised Trauma: 12, @20:03P: 93,R: 20,BP: 118/70,SpO2: 95, @19:57P: 94,BP: 146/86,SpO2: 94, @19:41P: 97,R: 20,BP: 139/64,Temp: 100.8F,SpO2: 94, Assessments @19:34MENTAL:No Abnormalities,SKIN:No Abnormalities,HEENT:Head/Face: No Abnormalities,Eyes: No Abnormalities,Neck/Airway: No Abnormalities,LUNG SOUNDS:General: Nausea,General: Other,Left Lower: Other,Right Lower: Other,Left Upper: No Abnormalities,Right Upper: No Abnormalities,ABDOMEN:General: Nausea,General: Other,Left Lower: Other,Right Lower: Other,Left Upper: No Abnormalities,Right Upper: No Abnormalities,PELVIS//GI:EXTREMITIES:Left Arm: No Abnormalities,Right Arm: No Abnormalities,Left Leg: No Abnormalities,Right Leg: No Abnormalities,PULSE:Radial: 2+ Normal,NEURO:No Abnormalities, Impression [facility] [address] [place] [address] EMS Patient Care Report Name: IRENE JON Room #: REG NEW Riley#: [id number] Admission: 07/09/20 Attend Phys: Discharge: Date of : 44 Report #: [id number] Fever Procedures @19:34ALS AssessmentResponse: UnchangedSucceeded@19:35Surgical Mask on PatientResponse: Unchanged@19:4612-Lead ECGResponse: UnchangedSucceeded 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,BP: 125/62 M,PULSE: 105,RR: 18 R,SPO2: 95 Ox,ETCO2: ,B,PAIN: 0,GCS: 15, 19:04,Call Received 19:04,Psap Call 19:21,Dispatched 19:22,En Route 19:31,On Scene 19:33,At Patient 19:34,ALS Assessment,Response: UnchangedSucceeded, 19:35,Surgical Mask on Patient,Response: Unchanged 19:41,BP: 139/64 M,PULSE: 97,RR: 20 R,SPO2: 94 Ox,ETCO2: ,BG: ,PAIN: ,GCS: , 19:46,12-Lead ECG,Response: UnchangedSucceeded, 19:46,BP: / M,PULSE: 93,RR: R,SPO2: Ox,ETCO2: ,BG: ,PAIN: ,GCS: , 19:48,Depart Scene 19:49,BP: / M,PULSE: 94,RR: R,SPO2: 97 Ox,ETCO2: ,BG: ,PAIN: ,GCS: , 19:57,BP: 146/86 M,PULSE: 94,RR: R,SPO2: 94 Ox,ETCO2: ,BG: ,PAIN: ,GCS: , 20:03,BP: 118/70 M,PULSE: 93,RR: 20 R,SPO2: 95 Ox,ETCO2: ,BG: ,PAIN: ,GCS: , 20:03,At Destination 20:30,Call Closed Disclaimer v1.1 Copyright 2020 [employer] This EMS Care Summary contains data elements from the applicable legal record (which may be displayed differently). It is designed to provide pertinent information for the following purposes: continuity of care, clinical quality, and state data reporting. The complete legal record is available to ED staff and administrators of the receiving hospital in [facility]'s Patient Tracker. All data is provided "as is."
[2020-07-09 20:09] VITALS: BP 140/58
[2020-07-09 20:48] LABS: ABSOLUTE NEUTROPHILS 11.1 thou/uL (1.4-8.2); BASOPHILS 0.3 % (0.0-2.0); EOSINOPHILS 0.3 % (0.0-3.0); HEMATOCRIT 37.8 % (37.0-47.0); HEMOGLOBIN 12.4 gm/dL (12.0-15.0); MCH 30.2 pg (26.0-34.0); MCHC 32.8 g/dL (28.0-37.0); MCV 92.2 fL (80.0-100.0); PLATELET COUNT 302 thou/uL (150-400); POLYS 85.4 % (36.0-66.0); RDW 12.9 % (10.5-14.5)
[2020-07-09 20:52] LABS: CALCIUM 9.4 mg/dL (8.5-10.1); CREATININE 1.1 mg/dL (0.6-1.0); POTASSIUM 3.5 mmol/L (3.5-5.1)
[2020-07-09 20:57] LABS: ALBUMIN 2.8 g/dL (3.4-5.0); DIRECT BILIRUBIN 0.4 mg/dL (<0.1-0.2); TOTAL BILIRUBIN 0.9 mg/dL (0.2-1.0); TOTAL PROTEIN 6.8 g/dL (6.4-8.2)
--- NOTE | 2020-07-09 21:25 | NUR ---
PTS 'S PHONE NUMBER (WALDO)-[phone]
[2020-07-09 22:07] LABS: URINE BILIRUBIN NEGATIVE (Negative); URINE BLOOD 3+ (Negative); URINE CLARITY CLOUDY; URINE COLOR YELLOW; URINE GLUCOSE-RANDOM* 2+ (Negative); URINE KETONES TRACE (Negative); URINE LEUKOCYTES-REFLEX 2+ (Negative); URINE NITRITE-REFLEX POSITIVE (Negative); URINE PROTEIN (DIPSTICK) 2+ (Negative); URINE SPECIFIC GRAVITY >= 1.030 (1.005-1.035); URINE UROBILINOGEN 0.2 E.U./dl (0.2-1.0)
[2020-07-09 22:24] LABS: CASTS None Seen /LPF (None Seen); MUCUS 0-3 Light strn/LPF (None Seen); SQUAMOUS >10 Many /LPF (0-3)
[2020-07-09 22:25] LABS: BACTERIA-REFLEX >30 Many /HPF (None Seen); CRYSTALS None Seen /LPF (None Seen); URINE RBC >20 Many /HPF (0-2); URINE WBC-REFLEX >25 Many /HPF (0-5); WBC CLUMPS Many (None Seen)
[2020-07-09] MEDS ORDERED: TIZANIDINE4 MG/1 TA1 PO (22:43)
[2020-07-10 07:23] LABS: HEMATOCRIT 37.9 % (37.0-47.0); HEMOGLOBIN 12.8 gm/dL (12.0-15.0); MCH 31.4 pg (26.0-34.0); MCHC 33.7 g/dL (28.0-37.0); RBC 4.08 mil/uL (4.20-5.00); RDW 12.9 % (10.5-14.5); WBC 8.7 thou/uL (4.0-11.0)
[2020-07-10 07:36] LABS: ANION GAP 7 mmol/L (7-16); BUN 20 mg/dL (7-18); CHLORIDE 100 mmol/L (98-107); CHOLESTEROL 118 mg/dL (<200); CO2 28 mmol/L (21-32); CREATININE 1.1 mg/dL (0.6-1.0); GLUCOSE 249 mg/dL (74-106); HDL CHOLESTEROL 10 mg/dL (>40); LDL CHOLESTEROL 69 mg/dL (<100); POTASSIUM 3.4 mmol/L (3.5-5.1); SODIUM 135 mmol/L (136-145); TC:HDL 11.8 Ratio (Not establshd); TRIGLYCERIDE 197 mg/dL (<150); VLDL 39 mg/dL (<40)
[2020-07-10 11:55] VITALS: BP 97/49
[2020-07-10 11:56] VITALS: BP 97/49
[2020-07-10 12:30] VITALS: BP 102/49
--- NOTE | 2020-07-10 15:08 | NUR ---
Admitted pt. at 1230. Pt. was drowsy upon arrival. Pt. came out of dorwsiness and was AOx4 and was able to eat a full cold lunch.
[2020-07-10 15:15] VITALS: BP 105/55
[2020-07-10 19:53] VITALS: BP 109/63
--- NOTE | 2020-07-11 00:09 | NUR ---
Care assumed of patient at 1915: Patient watching TV in bed at start of shift. Alert and oriented x4. Calm, pleasant and cooperative. Denies nausea and abdominal pain. Reported headache. Administered PRN Tylenol. On follow up, patient reported pain increased to head. Administered PRN Hydrocodone. O2 2L/min per NC. Took HS medication without difficulty. Fluids encouraged with each encounter. Denies pain or burning upon urination. No s/s of adverse effects from abx use due to UTI. Resting quietly with eyes closed at this time.
[2020-07-11 03:06] LABS: GLYCOHEMOGLOBIN (HGB A1C) 10.5 % (4.8-5.6)
[2020-07-11 04:06] VITALS: BP 115/56
[2020-07-11 06:02] LABS: HEMATOCRIT 33.4 % (37.0-47.0); HEMOGLOBIN 11.2 gm/dL (12.0-15.0); MCH 30.8 pg (26.0-34.0); MCHC 33.5 g/dL (28.0-37.0); MCV 91.8 fL (80.0-100.0); RBC 3.63 mil/uL (4.20-5.00); RDW 12.9 % (10.5-14.5); WBC 7.2 thou/uL (4.0-11.0)
[2020-07-11 06:39] LABS: CALCIUM 9.1 mg/dL (8.5-10.1); POTASSIUM 3.7 mmol/L (3.5-5.1)
[2020-07-11 07:17] VITALS: BP 122/52
[2020-07-11 11:00] VITALS: BP 122/52
--- NOTE | 2020-07-11 11:08 | NUR ---
Chart reviewed and case discussed with the care team. Information Technology Technician visited with pt/spouse at bedside. Spouse's cell number noted on the whiteboard in the room. Pt indicates that they live in the [facility] at [facility]. They do not have any steps and she uses a rolator walker for gait. She reports being more sedentary lately due to back pain. She had HH per [facility] last year and would like to use them again at wi. Her pcp is Dr. Gracie Kilgore. She is being treated for a UTI and reports a fall at home. PT/OT evals are pending. [place] paraplanner to fax referral to [facility] for likely hh referral at [place].
[2020-07-11 15:30] VITALS: BP 119/61
--- NOTE | 2020-07-11 17:35 | NUR ---
FAXED REFERRAL TO [facility] SPOKE WITH SHELDON IN INTAKE THEY CAN ACCEPT AT DISCHARGE.
[2020-07-11 20:00] VITALS: BP 146/79
[2020-07-12 02:30] VITALS: BP 134/73
--- NOTE | 2020-07-12 05:20 | NUR ---
ASSUMED CAER OF PT AROUND 1900HRS. PT AOX3-4 AND LETS NEEDS BE KNOWN. FALL PRECAUTION IN PLACE. PT REPORTED PAIN AND WAS TREATED WITH PRN PAIN MEDS. O2 VIA NC CONTINUED AT 1L. PT WAS INCONTINENT THIS SHIFT. PT WAS ABLE TO GET COMFORTABLE AND SLEEP PART OF THE SHIFT. VSS AND NO S/S OF ACUTE DISTRESS. WILL CONTINUE TO MONITOR.
[2020-07-12 07:05] VITALS: BP 152/73
[2020-07-12 09:35] VITALS: BP 122/52
[2020-07-12] MEDS ORDERED: KEFLEX500 M1 PO (11:14)
--- NOTE | 2020-07-12 12:57 | NUR ---
on-going assessment: PT HAS ORDERS TO DISCHARGE HOME TODAY WITH HH ([facility] ) BACK TO HER INDEPENDENT LIVING APT AT [facility] WHERE SHE LIVES WITH HER . CM FAXED D/C PAPERWORK TO [facility] AND NOTIFIED THEM OF DISCHARGE. PT REPORTS NO FURTHER NEEDS FROM CM.
[2020-07-12 13:00] VITALS: BP 122/52
[2020-07-12 13:10] VITALS: BP 120/61
[2020-07-12 13:25] VITALS: BP 120/61
--- NOTE | 2020-07-12 14:30 | NUR ---
Assumed care of pt. at 0700. Pt. was calm and cooperative. Pt. did not complain of pain. Dr. Sherman approved discharge of pt. Pt. returned to pickup driver for discharge.
== END 2020-07-12 15:53 | disposition home health service (06) | DRG 872 ==
LOC: ER 20:08 → 4S 23:33 → EROBS 23:33 → 4S 07-10 11:59
PROVIDERS: Hospitalist; Nurse Practitioner; Nurse Practitioner Family; ADMIT Internal Medicine; ATTEND Internal Medicine
DX: A41.9 Sepsis, unspecified organism (principal); N12 Tubulo-interstitial nephritis, not specified as acute or chronic; Z20.828 Contact with and (suspected) exposure to other viral communicable diseases; G89.29 Other chronic pain; F41.9 Anxiety disorder, unspecified; M54.9 Dorsalgia, unspecified; F32.9 Major depressive disorder, single episode, unspecified; E11.9 Type 2 diabetes mellitus without complications; E03.9 Hypothyroidism, unspecified; E78.5 Hyperlipidemia, unspecified; Z79.899 Other long term (current) drug therapy; Z90.710 Acquired absence of both cervix and uterus; Z90.49 Acquired absence of other specified parts of digestive tract; Z88.0 Allergy status to penicillin; Z88.8 Allergy status to other drugs, medicaments and biological substances; Z79.4 Long term (current) use of insulin
CPT/HCPCS: 10195

== ENCOUNTER 2020-07-19 14:53 | Emergency (ER) | payer OTHER ==
[~2020-07-19] VITALS: Ht 157.5 cm; Wt 104.3 kg
[~2020-07-19 14:53] MED LIST changes: +TIZANIDINE4 MG/1 TA1 PO
[2020-07-19 15:23] LABS: ABSOLUTE NEUTROPHILS 8.6 thou/uL (1.4-8.2); BASOPHILS 0.4 % (0.0-2.0); EOSINOPHILS 0.6 % (0.0-3.0); HEMATOCRIT 39.2 % (37.0-47.0); HEMOGLOBIN 13.3 gm/dL (12.0-15.0); LYMPHOCYTES 12.5 % (24.0-44.0); MCH 30.8 pg (26.0-34.0); MCHC 33.8 g/dL (28.0-37.0); MCV 91.2 fL (80.0-100.0); MONOCYTES 7.1 % (1.0-8.0); PLATELET COUNT 421 thou/uL (150-400); POLYS 79.4 % (36.0-66.0); WBC 10.8 thou/uL (4.0-11.0)
[2020-07-19 15:38] LABS: ALBUMIN 3.1 g/dL (3.4-5.0); CALCIUM 9.4 mg/dL (8.5-10.1); CREATININE 1.1 mg/dL (0.6-1.0); POTASSIUM 4.1 mmol/L (3.5-5.1); TOTAL BILIRUBIN 0.6 mg/dL (0.2-1.0); TOTAL PROTEIN 7.5 g/dL (6.4-8.2)
[2020-07-19 17:37] LABS: BE(vivo) -0.1 mmol/L (-2 to +3); HCO3 24.9 mmol/L (22.0-26.0); PCO2 VENOUS 41.8 mmHg (41.0-51.0); PO2 VENOUS 36.9 mmHg (35.0-45.0)
[2020-07-19 19:37] LABS: URINE BILIRUBIN NEGATIVE (Negative); URINE BLOOD 3+ (Negative); URINE CLARITY SL CLOUDY; URINE COLOR YELLOW; URINE GLUCOSE-RANDOM* 3+ (Negative); URINE KETONES NEGATIVE (Negative); URINE LEUKOCYTES-REFLEX 2+ (Negative); URINE NITRITE-REFLEX POSITIVE (Negative); URINE PROTEIN (DIPSTICK) NEGATIVE (Negative); URINE UROBILINOGEN 0.2 E.U./dl (0.2-1.0)
[2020-07-19 19:45] LABS: CASTS None Seen /LPF (None Seen); CRYSTALS None Seen /LPF (None Seen); SQUAMOUS 0-3 Few /LPF (0-3); URINE WBC-REFLEX >25 Many /HPF (0-5)
[2020-07-19 19:46] LABS: BACTERIA-REFLEX >30 Many /HPF (None Seen); URINE RBC 3-10 Few /HPF (0-2)
[2020-07-19] MEDS ORDERED: KEFLEX500 M1 PO (19:56)
[2020-07-19 20:30] VITALS: BP 141/59
== END 2020-07-19 20:51 | disposition home or self-care (01) ==
LOC: ER 14:53
PROVIDERS: Emergency Medicine
DX: E11.65 Type 2 diabetes mellitus with hyperglycemia (principal); N39.0 Urinary tract infection, site not specified; E03.9 Hypothyroidism, unspecified; E78.5 Hyperlipidemia, unspecified; F32.9 Major depressive disorder, single episode, unspecified; F41.9 Anxiety disorder, unspecified; Z88.0 Allergy status to penicillin; Z88.8 Allergy status to other drugs, medicaments and biological substances; Z90.711 Acquired absence of uterus with remaining cervical stump; Z90.49 Acquired absence of other specified parts of digestive tract; Z79.899 Other long term (current) drug therapy; Z79.2 Long term (current) use of antibiotics

== ENCOUNTER 2020-08-07 15:51 | Emergency (ER) | payer OTHER ==
[~2020-08-07] VITALS: Ht 157.5 cm; Wt 104.3 kg
[2020-08-07 16:26] LABS: BE(vivo) 1.4 mmol/L (-2 to +3); HCO3 28.1 mmol/L (22.0-26.0); PO2 VENOUS 33.9 mmHg (35.0-45.0)
[2020-08-07 16:48] LABS: ABSOLUTE NEUTROPHILS 6.1 thou/uL (1.4-8.2); BASOPHILS 1.4 % (0.0-2.0); EOSINOPHILS 1.7 % (0.0-3.0); HEMATOCRIT 40.4 % (37.0-47.0); HEMOGLOBIN 13.6 gm/dL (12.0-15.0); LYMPHOCYTES 21.4 % (24.0-44.0); MCH 30.6 pg (26.0-34.0); MCHC 33.5 g/dL (28.0-37.0); MCV 91.3 fL (80.0-100.0); MONOCYTES 5.1 % (1.0-8.0); PLATELET COUNT 399 thou/uL (150-400); POLYS 70.4 % (36.0-66.0); RBC 4.43 mil/uL (4.20-5.00); RDW 12.9 % (10.5-14.5); WBC 8.7 thou/uL (4.0-11.0)
[2020-08-07 16:57] LABS: CALCIUM 10.2 mg/dL (8.5-10.1); CREATININE 1.1 mg/dL (0.6-1.0); POTASSIUM 4.2 mmol/L (3.5-5.1)
[2020-08-07 16:59] LABS: ALBUMIN 3.3 g/dL (3.4-5.0); TOTAL BILIRUBIN 0.3 mg/dL (0.2-1.0); TOTAL PROTEIN 7.8 g/dL (6.4-8.2)
[2020-08-07 17:57] LABS: URINE BILIRUBIN NEGATIVE (Negative); URINE BLOOD 2+ (Negative); URINE CLARITY SL CLOUDY; URINE COLOR YELLOW; URINE GLUCOSE-RANDOM* 3+ (Negative); URINE KETONES NEGATIVE (Negative); URINE PROTEIN (DIPSTICK) NEGATIVE (Negative); URINE SPECIFIC GRAVITY 1.015 (1.005-1.035); URINE UROBILINOGEN 0.2 E.U./dl (0.2-1.0)
[2020-08-07 17:58] LABS: URINE LEUKOCYTES-REFLEX 1+ (Negative); URINE NITRITE-REFLEX POSITIVE (Negative)
[2020-08-07 18:10] LABS: BACTERIA-REFLEX >30 Many /HPF (None Seen); CASTS None Seen /LPF (None Seen); CRYSTALS None Seen /LPF (None Seen); SQUAMOUS 0-3 Few /LPF (0-3); URINE RBC 3-10 Few /HPF (0-2); URINE WBC-REFLEX >25 Many /HPF (0-5)
[2020-08-07] MEDS ORDERED: MACROBID 100 M100 M1 PO (18:38)
[2020-08-07 18:46] VITALS: BP 144/64
== END 2020-08-07 18:46 | disposition home or self-care (01) ==
LOC: ER 15:51
PROVIDERS: Physician Assistant
DX: N39.0 Urinary tract infection, site not specified (principal); E11.65 Type 2 diabetes mellitus with hyperglycemia; E03.9 Hypothyroidism, unspecified; E78.5 Hyperlipidemia, unspecified; G89.29 Other chronic pain; M54.9 Dorsalgia, unspecified; Z90.710 Acquired absence of both cervix and uterus; Z79.899 Other long term (current) drug therapy; Z88.0 Allergy status to penicillin; Z88.8 Allergy status to other drugs, medicaments and biological substances; Z79.4 Long term (current) use of insulin

== ENCOUNTER → 2020-11-03 | Outpatient (CLI) | payer OTHER | LOC: SJCVCIMAG 11:03 | PROVIDERS: ATTEND Internal Medicine | DX: I08.1 Rheumatic disorders of both mitral and tricuspid valves (principal); E11.9 Type 2 diabetes mellitus without complications; Z79.4 Long term (current) use of insulin; Z79.899 Other long term (current) drug therapy ==

== ENCOUNTER → 2020-11-07 | Outpatient (CLI) | payer OTHER | LOC: SJCVCIMAG 11-03 11:00 | PROVIDERS: ATTEND Internal Medicine | DX: Z01.810 Encounter for preprocedural cardiovascular examination (principal); R51.9 Headache, unspecified; R06.02 Shortness of breath; E78.5 Hyperlipidemia, unspecified; E11.9 Type 2 diabetes mellitus without complications; Z88.0 Allergy status to penicillin; Z88.8 Allergy status to other drugs, medicaments and biological substances; Z79.4 Long term (current) use of insulin; Z79.899 Other long term (current) drug therapy ==